=== PATIENT | female | born 1975 | race Asian ===

== ENCOUNTER 2021-03-07 00:05 | Day surgery (SDC) | payer BC ==
[2021-03-07 00:47] VITALS: BMI 25.6
[2021-03-07 01:30] LABS: Amnisure Test No Membranes Rupture (No Rupture)
[2021-03-07] MEDS ORDERED: hydrALAZINE 20 MG/ML VIAL SLOW IVP PRN (02:21)
== END 2021-03-07 02:40 | disposition home or self-care (01) ==
LOC: CSHLD/OP 00:05
PROVIDERS: ATTEND Obstetrics & Gynecology
DX: O99.891 Other specified diseases and conditions complicating pregnancy (principal); N89.8 Other specified noninflammatory disorders of vagina; R10.9 Unspecified abdominal pain; O09.513 Supervision of elderly primigravida, third trimester; Z3A.37 37 weeks gestation of pregnancy; Z91.040 Latex allergy status
CPT/HCPCS: 84112; 99283